=== PATIENT | male | born 1955 | race Caucasian/White ===

== ENCOUNTER 2020-05-31 09:43 | Emergency (ER) | payer OTHER, MEDICARE ==
--- NOTE | 2020-05-31 10:43 | TELE ---
HPI Do you have fever,cough or shortness of breath?: No - General Reason For Visit: COVID 19 TEST History Source: Patient Exam Limitations: No Limitations (64-year-old male history of ulcerative colitis otherwise healthy returned 4 days ago from [place]. Reports negative COVID IgG and IgM blood test 8 days ago. Requesting COVID to swab. Denies cough, fever, chest pain, shortness of breath or any other symptoms. Denies contacts with known positive COVID patients.) - History of Present Illness 05/31/20 10:41 64-year-old male history of ulcerative colitis, arrived from [place] 4 days ago after being there since January 07, 2020. Patient patient had COVID IgG and IgM blood test 8 days ago which was negative. Patient has been at home since he arrived, denies cough, fever, chills, or any concerning symptoms. Denies contact with known COVID positive patients. Requesting COVID swab. Past History - Travel History Traveled outside of the country in the last 30 days: No Discharge Diagnosis at time of Disposition: Counseled about COVID-19 virus infection, COVID-19 ruled out by laboratory testing - Referrals - Patient Instructions Additional Discharge Instructions: Remain quarantined for a total of 2 weeks If you develop symptoms treat with Tylenol and ibuprofen as needed For you will be contacted with your covid results as soon as they are reported - Discharge Disposition: HOME Condition at time of Disposition: Stable
== END 2020-05-31 13:00 | disposition home or self-care (01) ==
LOC: JVIRT 09:43
DX: Z03.818 Encounter for observation for suspected exposure to other biological agents ruled out (principal)
CPT/HCPCS: Q3014-GT; U0003